=== PATIENT | male | born 1940 | race Asian ===

== ENCOUNTER 2016-06-26 15:14 | Emergency (ER) | payer MEDICARE, MEDICAID ==
[~2016-06-26] VITALS: Ht 170.2 cm; Wt 81.5 kg
[~2016-06-26 15:14] MED LIST: ATOR40TA71 PO; CARV25 PO; INSU100C3 SQ; LISI20TA PO; METF10002 PO
[2016-06-26 15:26] LABS: GLUCOSE,POINT OF CARE 469 MG/DL (70-110)
[2016-06-26] MEDS ORDERED: INSULIN REGULAR, HUMAN 100 UNITS/ML IVP ONE (16:15)
[2016-06-26] MEDS ORDERED: SODIUM CHLORIDE 0.9% 1,000 ML IV ONE (16:15)
[2016-06-26 16:27] LABS: BASOPHILS % (AUTO) 0.3 % (0.0-2.0); EOSINOPHILS % (AUTO) 5.3 % (1.0-6.0); HEMATOCRIT 48.1 % (41-53); HEMOGLOBIN 15.8 g/dL (13.5-17.5); LYMPHOCYTES # (AUTO) 2.1 K/uL (1.0-4.8); LYMPHOCYTES % (AUTO) 18.4 % (22.0-44.0); MEAN CORPUSCULAR HEMOGLOBIN 29.8 pg (26.0-34.0); MEAN CORPUSCULAR HGB CONC 32.9 G/dL (31.0-37.0); MEAN CORPUSCULAR VOLUME 90 fL (80-100); MONOCYTES # (AUTO) 1.1 K/uL (0.1-1.0); MONOCYTES % (AUTO) 10.1 % (2.0-9.0); NEUTROPHILS # (AUTO) 7.4 K/uL (1.8-7.7); NEUTROPHILS % (AUTO) 65.9 % (40.0-70.0); PLATELET COUNT (AUTO) 173 K/uL (150-450); RED BLOOD CELL COUNT(AUTO) 5.31 MIL/uL (4.50-5.90); RED CELL DISTRIBUTION WIDTH 12.8 % (11.5-14.5); WHITE BLOOD COUNT (AUTO) 11.3 K/uL (4.5-11.0)
[2016-06-26 16:41] LABS: ALANINE AMINOTRANSFERASE 34 U/L (12-78); ALBUMIN 3.5 g/dL (3.4-5.0); ANION GAP 8 mmol/L (8-16); ASPARTATE AMINOTRANSFERASE 17 U/L (15-37); BILIRUBIN,TOTAL 0.5 mg/dL (0.1-1.0); CALCIUM, TOTAL 8.8 mg/dL (8.8-10.5); CARBON DIOXIDE 26 mmol/L (22-29); CHLORIDE 100 mmol/L (98-107); CREATININE 1.15 mg/dL (0.60-1.30); GLOMERULAR FILTR. RATE CALC > 60 mL/min (>60); POTASSIUM 4.2 mmol/L (3.5-5.1); SODIUM SERUM 134 mmol/L (136-145); TOTAL PROTEIN, SERUM 7.5 g/dL (6.4-8.2); UREA NITROGEN, BLOOD 20 mg/dL (7-18)
[2016-06-26 17:21] LABS: APPEARANCE,URINE CLEAR (CLEAR); GLUCOSE, URINE (UA) >=1000 mg/dL (NEGATIVE); KETONES,URINE NEGATIVE (NEGATIVE); LEUKOCYTE ESTERASE ,URINE NEGATIVE (NEGATIVE); OCCULT BLOOD,URINE TRACE (NEGATIVE); PH,URINE 5.5 (5.0-8.0); PROTEIN,URINE TRACE (NEGATIVE)
[2016-06-26 17:24] LABS: ADD UA MICROSCOPIC YES; WBC,URINE 0-2 /HPF (0-5)
[2016-06-26] MEDS ORDERED: IOVERSOL 320 MG/ML 100 ML VIAL ONE (17:50)
[2016-06-26] MEDS ORDERED: SODIUM CHLORIDE 0.9% 100 ML ONE (17:51)
[2016-06-26] MEDS ORDERED: FAMOTIDINE 10 MG/ML 2 ML VIAL IVP ONE (18:15)
[2016-06-26] MEDS ORDERED: DiphenhydrAMINE HCL 50 MG/ML VIAL IVP ONE (18:15)
[2016-06-26 19:37] LABS: GLUCOSE,POINT OF CARE 127 MG/DL (70-110)
[2016-06-26] MEDS ORDERED: CefTRIAXone SODIUM 2 GM in DEXTROSE 5%-WATER 50 ML IV ONE (21:15)
[2016-06-26 21:27] VITALS: BP 162/86
== END 2016-06-26 22:00 | disposition home or self-care (01) ==
LOC: EMS 15:14
DX: L03.213 Periorbital cellulitis (principal); E11.65 Type 2 diabetes mellitus with hyperglycemia; E78.00 Pure hypercholesterolemia, unspecified; I10 Essential (primary) hypertension; F17.210 Nicotine dependence, cigarettes, uncomplicated; Z79.4 Long term (current) use of insulin
CPT/HCPCS: 36415; 70481; 80053; 81001; 82962; 85025; 96361; 96374; 96375; 99285; J0696; J1200; J1815; J3490; J7030; J7050; J7060; Q9967

== ENCOUNTER 2018-12-16 19:35 | Emergency (ER) | payer MEDICARE, MEDICAID ==
[~2018-12-16] VITALS: Ht 170.2 cm; Wt 84.5 kg
[~2018-12-16 19:35] MED LIST changes: +METF-446 PO; -METF10002 PO
[2018-12-16] MEDS ORDERED: AMLO-340 PO (19:49)
[2018-12-16] MEDS ORDERED: GABA-529 PO (19:52)
[2018-12-16] MEDS ORDERED: CLOP75TA32 PO (19:52)
[2018-12-16 20:03] LABS: BASOPHILS % (AUTO) 1.3 % (0.0-2.0); EOSINOPHILS % (AUTO) 10.7 % (1.0-6.0); HEMATOCRIT 46.5 % (41-53); HEMOGLOBIN 15.5 g/dL (13.5-17.5); LYMPHOCYTES # (AUTO) 2.2 K/uL (1.0-4.8); LYMPHOCYTES % (AUTO) 27.7 % (22.0-44.0); MEAN CORPUSCULAR HEMOGLOBIN 30.7 pg (26.0-34.0); MEAN CORPUSCULAR HGB CONC 33.3 G/dL (31.0-37.0); MEAN CORPUSCULAR VOLUME 92 fL (80-100); MONOCYTES # (AUTO) 0.8 K/uL (0.1-1.0); MONOCYTES % (AUTO) 9.9 % (2.0-9.0); NEUTROPHILS % (AUTO) 50.4 % (40.0-70.0); PLATELET COUNT (AUTO) 158 K/uL (150-450); RED BLOOD CELL COUNT(AUTO) 5.05 MIL/uL (4.50-5.90); RED CELL DISTRIBUTION WIDTH 13.2 % (11.5-14.5)
[2018-12-16 20:13] LABS: CALCIUM, TOTAL 9.3 mg/dL (8.8-10.5); CREATININE 1.2 mg/dL (0.60-1.30); POTASSIUM 3.7 mmol/L (3.5-5.1)
[2018-12-16 20:18] LABS: ALBUMIN 3.9 g/dL (3.4-5.0); BILIRUBIN,TOTAL 0.4 mg/dL (0.1-1.0); TOTAL PROTEIN, SERUM 7.6 g/dL (6.4-8.2)
[2018-12-16 21:08] VITALS: BP 165/74
[2018-12-16] MEDS ORDERED: DEXTROSE 50%-WATER 25 GM/50 ML SYRINGE IVP PRN (22:00)
[2018-12-16] MEDS ORDERED: INSULIN REGULAR, HUMAN 100 UNITS/ML SQ PRN (22:00)
== END 2018-12-16 22:46 | disposition left against medical advice (07) ==
LOC: EMS 19:36
DX: R07.89 Other chest pain (principal); I10 Essential (primary) hypertension; E11.9 Type 2 diabetes mellitus without complications; E78.00 Pure hypercholesterolemia, unspecified; F17.210 Nicotine dependence, cigarettes, uncomplicated; Z79.899 Other long term (current) drug therapy; Z98.890 Other specified postprocedural states
CPT/HCPCS: 70450; 93005; 99406